=== PATIENT | female | born 1950 | race Caucasian/White ===

== ENCOUNTER 2017-03-07 21:02 | Emergency (ER) | payer MEDICAID, OTHER ==
[~2017-03-07] VITALS: Ht 167.6 cm; Wt 66.5 kg
[2017-03-07 21:31] VITALS: Ht 167.6 cm; Wt 66.5 kg
[2017-03-08] MEDS ORDERED: SOD CHLORIDE 0.9% 500 ML IV STA (01:00)
[2017-03-08 01:30] LABS: URINE BLOOD (Dip) POC 3+ (NEGATIVE)
[2017-03-08 01:49] LABS: ADD SCAN DIFF NO
[2017-03-08] MEDS ORDERED: ASPI-664 PO (01:54)
[2017-03-08] MEDS ORDERED: LOSA100T7 PO (01:54)
[2017-03-08 01:55] LABS: BASOPHILS % 0.4 % (0.0-2.0); EOSINOPHILS # 0.1 10^3/ul (0.0-0.5); EOSINOPHILS % 1.5 % (0.0-7.0); HEMATOCRIT 37.2 % (37.0-47.0); HEMOGLOBIN 13.3 g/dl (12.0-16.0); LYMPHOCYTES # 1.9 10^3/ul (0.8-2.9); LYMPHOCYTES % 21.8 % (15.0-51.0); MEAN CORPUSCULAR HEMOGLOBIN 29.3 pg (29.0-33.0); MEAN CORPUSCULAR HGB CONC 35.8 g/dl (32.0-37.0); MEAN CORPUSCULAR VOLUME 81.9 fl (82.0-101.0); MEAN PLATELET VOLUME 8.7 fl (7.4-10.4); MONOCYTE # 0.6 10^3/ul (0.3-0.9); MONOCYTES % 7.4 % (0.0-11.0); NEUTROPHIL # 5.9 10^3/ul (1.6-7.5); NEUTROPHILS % 68.7 % (39.0-77.0); PLATELET COUNT 314 10^3/UL (140-415); RED BLOOD COUNT 4.54 10^6/ul (4.20-5.40); RED CELL DISTRIBUTION WIDTH 11.9 % (11.5-14.5); WHITE BLOOD COUNT 8.5 10^3/ul (4.8-10.8)
[2017-03-08] MEDS ORDERED: MAGN400T28 PO (01:57)
[2017-03-08] MEDS ORDERED: SIMV10TA PO (01:57)
[2017-03-08] MEDS ORDERED: PANT20TA3 PO (01:57)
[2017-03-08] MEDS ORDERED: LOSA1TAB21 PO (01:57)
[2017-03-08] MEDS ORDERED: LABETALOL HCL 20MG INJ IV ONE (02:00)
[2017-03-08 02:14] LABS: INR 0.82; PROTIME 11.3 Sec (12.2-14.2); PT RATIO 0.9
[2017-03-08 02:22] LABS: ALANINE AMINOTRANSFERASE 41 IU/L (13-69); ALBUMIN 5.4 g/dl (3.3-4.9); ALBUMIN/GLOBULIN RATIO 1.25; ALKALINE PHOSPHATASE 106 IU/L (42-121); ANION GAP 19 (8-16); ASPARTATE AMINO TRANSFERASE 31 IU/L (15-46); BILIRUBIN,INDIRECT 0.6 mg/dl (0-1.1); BILIRUBIN,TOTAL 0.6 mg/dl (0.2-1.3); BLOOD UREA NITROGEN 13 mg/dl (7-20); CALCIUM 9.9 mg/dl (8.4-10.2); CARBON DIOXIDE 26 mmol/L (21-31); CHLORIDE 79 mmol/L (97-110); CREATININE 0.72 mg/dl (0.44-1.00); GLUCOSE 130 mg/dl (70-220); SODIUM 121 mmol/L (135-144); TOTAL PROTEIN 9.7 g/dl (6.1-8.1)
--- NOTE | 2017-03-08 02:24 | RADRPT ---
PROCEDURE: Portable chest x-ray. CLINICAL INDICATION: Chest pain. TECHNIQUE: Portable AP view of the chest. COMPARISON: None. FINDINGS: No pulmonary edema or conolidation is identified. The cardiac silhouette is magnified. There are ao rtic calcifications. No pleural effusion is seen. There is no pneumothorax. IMPRESSION: 1. No evidence of acute cardiopulmonary disease. 2. Aortic atherosclerosis. RPTAT: HTAR .Owen Chan MD, MD Date Time Electronically viewed and signed by .Owen Chan MD, MD on 03/08/2017 02:24 .R/
[2017-03-08 02:26] LABS: POTASSIUM 2.8 mmol/L (3.5-5.1)
[2017-03-08 02:33] LABS: B-TYPE NATRIURETIC PEPTIDE 61 PG/ML (0-125)
[2017-03-08 02:37] LABS: T3 UPTAKE 31.9 % (23.5-40.5)
[2017-03-08 02:38] LABS: TROPONIN-I < 0.012 ng/ml (0.00-0.12)
[2017-03-08 02:51] LABS: THYROID STIMULATING HORMONE 0.755 MIU/L (0.465-4.680)
--- NOTE | 2017-03-08 03:42 | ERD ---
ER Documentation Chief Complaint Date/Time DATE: 03/08/17 TIME: 03:40 Chief Complaint palpitation w/ chest pain today HPI 66-year-old female comes in with palpitations. Denies any fevers chills nausea vomiting. Denies any chest pain. Denies any other current issues. Symptoms going on for 12 hours. ROS All systems reviewed and are negative except as per history of present illness. Medications Home Meds Reported Medications Simvastatin* (Zocor*) 10 Mg Tablet, 10 MG PO QHS, #30 TAB 03/08/17 Pantoprazole* (Pantoprazole*) 20 Mg Tablet.dr, 20 MG PO DAILY, TAB 03/08/17 Losartan-Hydrochlorothiazide (Losartan-HCTZ) 100-12.5 Mg Tab, 1 TAB PO DAILY, TAB 03/08/17 Magnesium Oxide* (Magnesium Oxide*) 400 Mg Tablet, 400 MG PO DAILY, TAB 03/08/17 Losartan Potassium* (Losartan Potassium*) 100 Mg Tablet, 100 MG PO DAILY, TAB 03/08/17 Aspirin* (Aspirin* EC) 81 Mg Tablet.dr, 81 MG PO DAILY, TAB 03/08/17 Allergies Allergies: Coded Allergies: No Known Allergy (Unverified , 03/07/17) PMhx/Soc History of Surgery: Yes Anesthesia Reaction: No Hx Cardiac Disorders: Yes (htn) Hx Alcohol Use: No Hx Substance Use: No Hx Tobacco Use: No Smoking Status: Unknown if ever smoked Physical Exam Vitals Vital Signs Date Time Temp Pulse Resp B/P Pulse Ox O2 Delivery O2 Flow Rate FiO2 03/08/17 01:36 103 20 189/94 95 Room Air 03/07/17 21:31 97.6 112 20 145/88 98 Physical Exam Const: [] Head: Atraumatic Eyes: Normal Conjunctiva ENT: Normal External Ears, Nose and Mouth. Neck: Full range of motion..~ No meningismus. Resp: Clear to auscultation bilaterally Cardio: Regular rate and rhythm, no murmurs Abd: Soft, non tender, non distended. Normal bowel sounds Skin: No petechiae or rashes Back: No midline or flank tenderness Ext: No cyanosis, or edema Neur: Awake and alert Psych: Normal Mood and Affect Result Diagram: 03/08/17 0126 03/08/17 0126 Results 24 hrs Laboratory Tests Test 03/08/17 01:26 03/08/17 01:33 White Blood Count 8.510^3/ul Red Blood Count 4.5410^6/ul Hemoglobin 13.3g/dl Hematocrit 37.2% Mean Corpuscular Volume 81.9fl Mean Corpuscular Hemoglobin 29.3pg Mean Corpuscular Hemoglobin Concent 35.8g/dl Red Cell Distribution Width 11.9% Platelet Count 08299^3/UL Mean Platelet Volume 8.7fl Neutrophils % 68.7% Lymphocytes % 21.8% Monocytes % 7.4% Eosinophils % 1.5% Basophils % 0.4% Nucleated Red Blood Cells % 0.0/100WBC Neutrophils # 5.910^3/ul Lymphocytes # 1.910^3/ul Monocytes # 0.610^3/ul Eosinophils # 0.110^3/ul Basophils # 0.010^3/ul Nucleated Red Blood Cells # 0.010^3/ul Prothrombin Time 11.3Sec Prothrombin Time Ratio 0.9 INR International Normalized Ratio 0.82 Activated Partial Thromboplast Time 36.0Sec Sodium Level 121mmol/L Potassium Level 2.8mmol/L Chloride Level 79mmol/L Carbon Dioxide Level 26mmol/L Anion Gap 19 Blood Urea Nitrogen 13mg/dl Creatinine 0.72mg/dl Glucose Level 130mg/dl Calcium Level 9.9mg/dl Total Bilirubin 0.6mg/dl Direct Bilirubin 0.00mg/dl Indirect Bilirubin 0.6mg/dl Aspartate Amino Transf (AST/SGOT) 31IU/L Alanine Aminotransferase (ALT/SGPT) 41IU/L Alkaline Phosphatase 106IU/L Troponin I < 0.012ng/ml B-Type Natriuretic Peptide 61PG/ML Total Protein 9.7g/dl Albumin 5.4g/dl Globulin 4.30g/dl Albumin/Globulin Ratio 1.25 Thyroid Stimulating Hormone (TSH) 0.755MIU/L Free Thyroxine Index 3.60ug/ml Thyroxine (T4) 11.3ug/dl Triiodothyronine (T3) Uptake 31.9% Bedside Urine pH (LAB) 7.0 Bedside Urine Protein (LAB) Negative Bedside Urine Glucose (UA) Negative Bedside Urine Ketones (LAB) Negative Bedside Urine Blood 3+ Bedside Urine Nitrite (LAB) Negative Bedside Urine Leukocyte Esterase (L Negative Current Medications Medications (Trade) Dose Ordered Sig/Jaycob Route PRN Reason Start Time Stop Time Status Last Admin Dose Admin Sodium Chloride (NS) 500 ml @ 500 mls/hr Q1H STAT IV 03/08/17 01:00 03/08/17 01:59 DC 03/08/17 01:35 Labetalol HCl (Labetalol) 20 mg ONCE ONCE IV 03/08/17 02:00 03/08/17 02:01 DC 03/08/17 02:06 Procedures/MDM EKG: Rate/Rhythm: [Normal Sinus Rhythm] QRS, ST, T-waves: [No changes consistent w/ acute ischemia] Impression: [No evidence of ischemia or arrhythmia] Chest X-ray 1V Interpreted by me: Soft Tissue: No acute abnormalities Bones: No acute abnormalities Mediastinum/Cardiac Silhouette/Lungs: [No acute abnormalities] Patient's thoracic symptoms have stabilized while in the department and are stable for outpatient follow up. Exam and work up not consistent w/ ischemia, arrhythmia, PE or dissection. Departure Diagnosis: Primary Impression: Palpitations Condition: Stable Patient Instructions: Palpitations BISHNU RIZO Mar 08, 2017 03:42
[2017-03-08 03:49] VITALS: BP 140/83; PULSE 72; RESP 18
== END 2017-03-08 03:53 | disposition home or self-care (01) ==
LOC: E/R 21:02
DX: R00.2 Palpitations (principal); I10 Essential (primary) hypertension; R07.9 Chest pain, unspecified; Z79.82 Long term (current) use of aspirin
CPT/HCPCS: 36415; 71010; 80053; 81003; 83880; 84436; 84443; 84479; 84484; 85025; 85610; 85730; 93005; 96374; J7040; Z7502; Z7610

== ENCOUNTER → 2017-06-29 | Outpatient (CLI) | payer OTHER ==
[~2017-06-29] MED LIST: ASPI-664 PO; LOSA100T7 PO; LOSA1TAB21 PO; MAGN400T28 PO; PANT20TA3 PO; SIMV10TA PO
== END | disposition home or self-care (01) ==
LOC: RAD 10:30
PROVIDERS: ATTEND Ophthalmology
DX: H40.20X0 Unspecified primary angle-closure glaucoma, stage unspecified (principal)
CPT/HCPCS: 66761

== ENCOUNTER → 2017-07-14 | Outpatient (CLI) | payer OTHER ==
[~2017-07-14] MED LIST changes: +APRACLONIDINE 1% 0.1 ML OPH ONE; +OPHTHALMIC IRRIG SOLUTION 120 ML ONE; +PILOCARPINE 2% 15ML OPH ONE; +PROPARACAINE 0.5% 15 ML OPH ONE
== END | disposition home or self-care (01) ==
LOC: RAD 10:35
PROVIDERS: ATTEND Ophthalmology
DX: H40.20X0 Unspecified primary angle-closure glaucoma, stage unspecified (principal)
CPT/HCPCS: 66761; Z7610